=== PATIENT | male | born 1965 | race Caucasian/White ===

== ENCOUNTER → 2017-02-20 | Outpatient (CLI) | payer BC ==
[~2017-02-20] MED LIST: CEPH-583 PO; IOHEXOL 300 MG/ML 100ml INJECTION ONE; NORMAL SALINE 100 ML ONE; SALINE FLUSH 10ml SYRINGE ONE
--- NOTE | 2017-02-20 14:09 | DI ---
Indication: ITS.REASON: R10.9 RIGHT FLANK PAIN PROCEDURE: CT RENAL W/WO CONTRAST: Encounter: Initial Comparison: None Technique: Axial CT images were performed through the abdomen and pelvis before and after the administration of intravenous contrast. Delayed postcontrast images were also performed. Coronal and sagittal 2-dimensional reformats. Automated Exposure Control and Iterative Reconstruction dose reducing techniques were utilized. Contrast: Omnipaque 300 100 mL Findings: The lung bases are clear. Noncontrast imaging shows no evidence of renal stone disease. No ureteral stones identified. No bladder is calculi. Postcontrast images show a normal appearance of the liver, gallbladder, spleen, pancreas and adrenal glands. The kidneys enhance normally. No abdominal or pelvic lymphadenopathy. Bladder appears thin walled and normal without enhancing mass. Prostate calcifications. No free fluid. No evidence of a bowel obstruction. No diverticulosis or diverticulitis. The appendix is normal. Bone windows show no significant findings. Delayed postcontrast images show normal excretion of contrast by both renal collecting systems. There is no hydronephrosis. No filling defects or mass appreciated. There is evidence of a tight looping or kinking within the right proximal ureter just distal to the ureteropelvic junction best seen on coronal image #32 and axial image #41 of the delayed postcontrast sequence. This is at the crossing of the right renal vein. The ureters are otherwise normal in course and caliber. The partially opacified urinary bladder is normal. 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 Recommend urologic evaluation. Otherwise negative exam. .
== END ==
LOC: IMA 12:56
PROVIDERS: ATTEND Family Medicine
DX: N13.5 Crossing vessel and stricture of ureter without hydronephrosis (principal); R10.11 Right upper quadrant pain
CPT/HCPCS: 74178; J7050; Q9967

== ENCOUNTER → 2017-03-05 | Outpatient (CLI) | payer BC ==
[~2017-03-05] MED LIST changes: +FUROSEMIDE 40 MG/4 ML INJECTION ONE; -IOHEXOL 300 MG/ML 100ml INJECTION ONE; -NORMAL SALINE 100 ML ONE
--- NOTE | 2017-03-05 15:02 | DI ---
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 Dynamic blood flow, blood pool and delayed images were obtained with gamma camera imaging overlying the abdomen and pelvis. 24 mg of Lasix was administered. FINDINGS: Dynamic blood flow images demonstrate satisfactory symmetric blood flow to both kidneys. Delayed images obtained over time demonstrate slightly delayed but satisfactory excretion from the right kidney with response to Lasix and normal excretion from the left kidney with no evidence of obstructive uropathy. No cortical retention is seen. Generated renogram curves demonstrate satisfactory excretion bilaterally. The left kidney contributes 50.8% of total renal function and 49.2% on the right. The T 1/2 values are 24.5 minutes on the right and 25.0 minutes on the left. IMPRESSION: Delayed but adequate and responsive to Lasix excretion from the left kidney suggesting a dilated but nonobstructed collecting system. .
== END ==
LOC: IMA 07:20
PROVIDERS: ATTEND Urology
DX: Q62.11 Congenital occlusion of ureteropelvic junction (principal)
CPT/HCPCS: 78708; A9562; J1940